=== PATIENT | female | born 1965 | race Caucasian/White ===

== ENCOUNTER 2023-07-06 21:33 | Emergency (ER) | payer BC ==
[2023-07-06 21:46] VITALS: PULSE 84; RESP 18; TEMP 100; BMI 28.3
[2023-07-06] MEDS ORDERED: IBUPROFEN 600 MG TABLET (FP) PO ONE ×2 (23:41→23:43)
[2023-07-07 00:53] VITALS: BP 141/97
== END 2023-07-07 01:09 | disposition home or self-care (01) ==
LOC: FER 21:33
DX: S20.211A Contusion of right front wall of thorax, initial encounter (principal); R07.89 Other chest pain; W00.1XXA Fall from stairs and steps due to ice and snow, initial encounter; Y93.01 Activity, walking, marching and hiking
CPT/HCPCS: 71101-TC-RT-FY; 99283-25